=== PATIENT | male | born 1960 | race Caucasian/White ===

== ENCOUNTER → 2025-01-20 | Outpatient (CLI) | payer OTHER, MEDICARE, SELFPAY ==
--- NOTE | 2025-01-20 16:06 | XR_ITS ---
Examination: Lumbar spine, 5 views Technique: Lumbar spine AP, lateral, coned lateral lower lumbar spine, bilateral obliques 5 views Exam date and time: January 20, 2025 1635 hours INDICATIONS: Low back pain several years. FINDINGS: Moderate osteopenia Diffuse moderate facet arthropathy. No lumbar fracture Mild disc narrowing posteriorly L4-L5 Advanced disc narrowing L5-S1 IMPRESSION: Advanced degenerative disc disease L5-S1 with spinal stenosis
--- NOTE | 2025-01-20 16:06 | XR_ITS ---
EXAMINATION: Cervical spine, 5 views Technique: Cervical spine AP, AP odontoid, lateral, bilateral obliques, 5 views Exam date and time: January 20, 2025 at 1635 hours INDICATIONS: Neck pain several years. FINDINGS: Satisfactory alignment cervical vertebral bodies No cervical fracture Intact odontoid No cervical disc narrowing Mild bilateral neural foraminal stenosis C5-C6 IMPRESSION: Mild bilateral neural foraminal stenosis C5-C6
== END | disposition home or self-care (01) ==
PROVIDERS: PCP Nurse Practitioner; Referring Provider Chiropractor; Visit Provider Chiropractor
DX: M51.379 Other intervertebral disc degeneration, lumbosacral region without mention of lumbar back pain or lower extremity pain (principal); M48.07 Spinal stenosis, lumbosacral region; M48.02 Spinal stenosis, cervical region
CPT/HCPCS: 72050; 72110